=== PATIENT | male | born 1985 | race African-American/Black ===

== ENCOUNTER 2020-11-17 07:33 | Emergency (ER) | payer SELFPAY ==
[2020-11-17] MEDS ORDERED: diphenhydrAMINE 50 MG/ML SDV IVPUSH ONE (08:12)
[2020-11-17] MEDS ORDERED: Haloperidol Lactate 5 MG/ML SDV IM ONE (08:12)
[2020-11-17] MEDS ORDERED: Dextrose 5%-Lactated Ringers 1,000 ML IV SCH (08:15)
[2020-11-17 08:35] LABS: BLOOD UREA NITROGEN,BUN 18 mg/dL (7.0-18.0); CARBON DIOXIDE,CO2 27.9 mmol/L (21.0-32.0); CHLORIDE,CL 102 mmol/L (98-107); GLUCOSE RANDOM 115 mg/dL (74-106); LIPASE 66 U/L (73-393); POTASSIUM,K 4.6 mmol/L (3.5-5.1); SODIUM,NA 139 mmol/L (136-148)
--- NOTE | 2020-11-18 18:21 | EDM.PDOC ---
ED HPI GENERAL MEDICAL PROBLEM - General Chief Complaint: Gastrointestinal Problem Stated Complaint: CHILLS, ACHES, ABDOMINAL PAIN Time Seen by Provider: 11/17/20 08:05 - History of Present Illness INITIAL COMMENTS - FREE TEXT/NARRATIVE: CHIEF COMPLAINT(S): Diarrhea HISTORY OF PRESENT ILLNESS: This is a 35-year-old man with a past ministry of marijuana use disorder who presents to the emergency department with a chief complaint of diarrhea. The patient states that he was fine up until he woke up this morning. States that when he woke up stomach was upset but denies any pain. He describes that queasiness. He states that he has had nausea but denies any vomiting. He has had a couple episodes of diarrhea which did not have any blood in it. He states that he has been working a lot and has not had any time off in the last 7 days. He states that his body feels warm but denies any fever. He did have a bowl of cereal last night which is the same thing his roommate had and his roommate does not have similar symptoms. He denies any chest pain, loss of taste or smell, headache, shortness of breath, cough, runny nose or congestion. He denies any other symptoms. REVIEW OF SYSTEMS: Constitutional: Denies fever, chills. Eyes: Denies eye pain Ears, Nose, Mouth, & Throat: Denies earache Cardiovascular: Denies chest pain Respiratory: Denies shortness of breath Gastrointestinal: Positive for nausea, diarrhea. Denies abdominal pain, vomiting, hematochezia or melena Genitourinary: Denies hematuria Skin:Denies a rash MSK: Denies joint pain Neurological: Denies blurred vision, headache Psychiatric: Denies depression PAST MEDICAL HISTORY: As per history of present illness and as reviewed below otherwise noncontributory. SURGICAL HISTORY: As per history of present illness and as reviewed below o therwise noncontributory. SOCIAL HISTORY: As per history of present illness and as reviewed below otherwise noncontributory. FAMILY HISTORY: As per history of present illness and as reviewed below otherwise noncontributory. EXAMINATION OF ORGAN SYSTEMS/BODY AREAS: Constitutional: Blood pressure was 142/84, heart rate 6, respiratory rate 16 with an oxygen saturation of 96% on room air. Temperature 36.2 General: Obese gentleman who does not appear to be in any acute distress Psychiatric: Appropriate mood and affect. Eyes: No scleral icterus or conjunctival erythema ENMT: Dry mucous membranes. No pharyngeal erythema. Cardiovascular: Regular, rate, and rhythm. No gallops, murmurs, or rubs. Bilateral upper extremity pulses symmetric and intact. No peripheral edema. No JVD. Respiratory: Lungs clear to auscultation bilaterally. No wheezes, rales, or rhonchi. Gastrointestinal: Soft, non-tender, non-distended. Hyperactive bowel sounds. No rebound or guarding. Negative Ty's and McBurney's genitourinary: No suprapubic tenderness Musculoskeletal: Normal range of motion. Skin: No lesions or abrasions. Neurological: Alert, GCS 15 MEDICAL DECISION MAKING AND COURSE IN THE ED WITH INTERPRETATION/REVIEW OF DIAGNOSTIC STUDIES: This is a 35-year-old man with a past medical history of marijuana use or presents to the emergency department with nausea and diarrhea this morning who has normal vital signs and does appear to be mildly clinically dehydrated. Therefore at this time we will provide the patient with D5 LR bolus. We will provide the patient with Haldol and Benadryl for relief of his nausea. Will obtain CBC, CMP, lipase. Glucose. This is for screening. I do believe the patient is experiencing gastroenteritis. Given that there is no blood in his stool I do suspect viral gastroenteritis. Laboratory: CBC reveals no abnormalities except for some neutrophilic predominance but no elevated WBC. CMP reveals hyperglycemia and hyperbilirubinemia of 1.3 without any transaminitis. Tqgan-ih-pvud glucose was 113. Lipase was normal Urinalysis was a clean catch and was negative for leukocyte esterase, negative for nitrites, and negative for blood. Interpretation: Negative. On reevaluation, the patient reported improvement in his nausea and feels more hydrated at this we will trial p.o. fluids to evaluate if patient pulled or drink. We did get him a tray. The patient was able to tolerate p.o. fluid and food without any further nausea or abnormality. I discussed with them strict return precautions been provided to him with information on gastroenteritis. He is to return for any new or worsening symptoms. He was amenable to discharge at this time and had no further questions. DISPOSITION: The patient was discharged home in stable condition. The patient will follow up with primary care physician in 3 to 5 days CONDITION: Fair PROCEDURES: None FINAL IMPRESSION(S)/DIAGNOSES: 1. Acute nausea and diarrhea likely secondary to gastroenteritis Rober Hernandez M.D. Abdomen Pain Score (Numeric/FACES): 6 - Related Data Allergies Allergy/AdvReac Type Severity Reaction Status Date / Time No Known Allergies Allergy Verified 11/17/20 07:51 Home Meds: Home Meds Ondansetron [Zofran ODT] 4 mg PO Q6H PRN #8 tab.dis 11/17/20 [Rx] Past Medical History - Past Health History Medical/Surgical History: Denies Medical/Surgical History - Infectious Disease History Infectious Disease History: Reports: Chicken Pox Social & Family History - Tobacco Use Tobacco Use Status *Q: Never Tobacco User - Caffeine Use Caffeine Use: Reports: None - Recreational Drug Use Recreational Drug Use: Yes Drug Use in Last 12 Months: Yes Recreational Drug Type: Reports: Marijuana/Hashish Recreational Drug Use Frequency: Daily ED ROS GENERAL - Review of Systems Review Of Systems: See Below ED EXAM, GENERAL - Physical Exam Exam: See Below Course - Vital Signs Last Recorded V/S: Last Vital Signs Temp 36.6 C 11/17/20 10:11 Pulse 80 11/17/20 10:11 Resp 16 11/17/20 10:11 BP 140/83 11/17/20 10:11 Pulse Ox 96 11/17/20 10:11 - Orders/Labs/Meds Labs: Laboratory Tests 11/17/20 11/17/20 11/17/20 Range/Units 07:56 07:56 07:57 WBC 9.82 (4.0-11.0) K/uL RBC 5.08 (4.50-5.90) M/uL Hgb 15.9 (13.0-17.0) g/dL Hct 47.3 (38.0-50.0) % MCV 93.1 (80.0-98.0) fL MCH 31.3 (27.0-32.0) pg MCHC 33.6 (31.0-37.0) g/dL RDW Std Deviation 48.0 (28.0-62.0) fl RDW Coeff of Crow 14 (11.0-15.0) % Plt Count 258 (150-400) K/uL MPV 10.60 (7.40-12.00) fL Neut % (Auto) 85.5 H (48.0-80.0) % Lymph % (Auto) 7.9 L (16.0-40.0) % [place] % (Auto) 5.4 (0.0-15.0) % Eos % (Auto) 1.2 (0.0-7.0) % Baso % (Auto) 0.0 (0.0-1.5) % Neut # (Auto) 8.4 H (1.4-5.7) K/uL Lymph # (Auto) 0.8 (0.6-2.4) K/uL [place] # (Auto) 0.5 (0.0-0.8) K/uL Eos # (Auto) 0.1 (0.0-0.7) K/uL Baso # (Auto) 0.0 (0.0-0.1) K/uL Nucleated RBC % 0.0 /100WBC Nucleated RBCs # 0 K/uL Sodium 139 (136-148) mmol/L Potassium 4.6 (3.5-5.1) mmol/L Chloride 102 (98-107) mmol/L Carbon Dioxide 27.9 (21.0-32.0) mmol/L BUN 18 (7.0-18.0) mg/dL Creatinine 1.1 (0.8-1.3) mg/dL Est Cr Clr Drug Dosing 89.82 mL/min Estimated GFR (MDRD) > 60.0 ml/min Glucose 115 H (74-106) mg/dL POC Glucose 113 H (70-99) mg/dL Calcium 8.6 (8.5-10.1) mg/dL Total Bilirubin 1.3 H (0.2-1.0) mg/dL AST 28 (15-37) IU/L ALT 31 (14-63) IU/L Alkaline Phosphatase 101 (46-116) U/L Total Protein 8.0 (6.4-8.2) g/dL Albumin 3.5 (3.4-5.0) g/dL Globulin 4.5 H (2.6-4.0) g/dL Albumin/Globulin Ratio 0.8 L (0.9-1.6) Lipase 66 L (73-393) U/L Urine Color Urine Appearance Urine pH (5.0-8.0) Ur Specific [place] (1.001-1.035) Urine Protein (NEGATIVE) mg/dL Urine Glucose (UA) (NEGATIVE) mg/dL Urine Ketones (NEGATIVE) mg/dL Urine Occult Blood (NEGATIVE) Urine Nitrite (NEGATIVE) Urine Bilirubin (NEGATIVE) Urine Urobilinogen (<2.0) EU/dL Ur Leukocyte Esterase (NEGATIVE) 11/17/20 Range/Units 07:58 WBC (4.0-11.0) K/uL RBC (4.50-5.90) M/uL Hgb (13.0-17.0) g/dL Hct (38.0-50.0) % MCV (80.0-98.0) fL MCH (27.0-32.0) pg MCHC (31.0-37.0) g/dL RDW Std Deviation (28.0-62.0) fl RDW Coeff of Crow (11.0-15.0) % Plt Count (150-400) K/uL MPV (7.40-12.00) fL Neut % (Auto) (48.0-80.0) % Lymph % (Auto) (16.0-40.0) % [place] % (Auto) (0.0-15.0) % Eos % (Auto) (0.0-7.0) % Baso % (Auto) (0.0-1.5) % Neut # (Auto) (1.4-5.7) K/uL Lymph # (Auto) (0.6-2.4) K/uL [place] # (Auto) (0.0-0.8) K/uL Eos # (Auto) (0.0-0.7) K/uL Baso # (Auto) (0.0-0.1) K/uL Nucleated RBC % /100WBC Nucleated RBCs # K/uL Sodium (136-148) mmol/L Potassium (3.5-5.1) mmol/L Chloride (98-107) mmol/L Carbon Dioxide (21.0-32.0) mmol/L BUN (7.0-18.0) mg/dL Creatinine (0.8-1.3) mg/dL Est Cr Clr Drug Dosing mL/min Estimated GFR (MDRD) ml/min Glucose (74-106) mg/dL POC Glucose (70-99) mg/dL Calcium (8.5-10.1) mg/dL Total Bilirubin (0.2-1.0) mg/dL AST (15-37) IU/L ALT (14-63) IU/L Alkaline Phosphatase (46-116) U/L Total Protein (6.4-8.2) g/dL Albumin (3.4-5.0) g/dL Globulin (2.6-4.0) g/dL Albumin/Globulin Ratio (0.9-1.6) Lipase (73-393) U/L Urine Color YELLOW Urine Appearance CLEAR Urine pH 6.5 (5.0-8.0) Ur Specific [place] 1.020 (1.001-1.035) Urine Protein NEGATIVE (NEGATIVE) mg/dL Urine Glucose (UA) NEGATIVE (NEGATIVE) mg/dL Urine Ketones NEGATIVE (NEGATIVE) mg/dL Urine Occult Blood NEGATIVE (NEGATIVE) Urine Nitrite NEGATIVE (NEGATIVE) Urine Bilirubin NEGATIVE (NEGATIVE) Urine Urobilinogen 1.0 (<2.0) EU/dL Ur Leukocyte Esterase NEGATIVE (NEGATIVE) Meds: Medications Discontinued Medications Generic Name Dose Route Start Last Admin Trade Name Freq PRN Reason Stop Dose Admin Diphenhydramine HCl 25 mg 11/17/20 08:12 11/17/20 08:17 Diphenhydramine 50 Mg/Ml Sdv IVPUSH 11/17/20 08:13 25 mg ONETIME ONE Administration Haloperidol Lactate 2.5 mg 11/17/20 08:12 11/17/20 08:17 Haloperidol Lactate 5 Mg/Ml Sdv IM 11/17/20 08:13 2.5 mg ONETIME ONE Administration Dextrose/Lactated Ringer's 1,000 mls @ 999 mls/hr 11/17/20 08:15 11/17/20 08:18 Dextrose 5%-Lactated Ringers IV 999 mls/hr ASDIRECTED ELSIE Administration Departure - Departure Time of Disposition: 10:39 Disposition: Home, Self-Care 01 Condition: Fair Clinical Impression: Gastroenteritis - Discharge Information Prescriptions: Ondansetron [Zofran ODT] 4 mg PO Q6H PRN #8 tab.dis PRN Reason: Nausea Instructions: Viral Gastroenteritis, Adult, [id number] Referrals: PCP,None [Primary Care Provider] - Forms: ED Department Discharge Additional Instructions: The following information is given to patients seen in the emergency department who are being discharged to home. This information is to outline your options for follow-up care. We provide all patients seen in our emergency department with a follow-up referral. The need for follow-up, as well as the timing and circumstances, are variable depending upon the specifics of your emergency department visit. If you don't have a primary care physician on staff, we will provide you with a referral. We always advise you to contact your personal physician following an emergency department visit to inform them of the circumstance of the visit and for follow-up with them and/or the need for any referrals to a consulting specialist. The emergency department will also refer you to a specialist when appropriate. This referral assures that you have the opportunity for follow-up care with a specialist. All of these measure are taken in an effort to provide you with optimal care, which includes your follow-up. Under all circumstances we always encourage you to contact your private physician who remains a resource for coordinating your care. When calling for follow-up care, please make the office aware that this follow-up is from your recent emergency room visit. If for any reason you are refused follow-up, please contact the [facility] Emergency Department at and asked to speak to the emergency department charge nurse. [facility] [address] [place] [address] [place] [address] Thank you for choosing the [facility] emergency department in [place] for your medical needs today. It was a pleasure caring for you. Today you were seen in the emergency department for gastroenteritis. 1. Small frequent sips of fluids to prevent dehydration. You may use the Zofran as needed for nausea management. Slowly advance your diet to a BRAT diet (bananas, rice, applesauce, toast). Once you feel you are improving you can resume a normal diet. If it anytime you are unable to keep fluids or food down any feel your symptoms are not improving and/or worsening please return to the emergency room for reevaluation. 2. Tylenol and/or ibuprofen as needed for pain and fever management. 3. Please establish care with a primary care provider, call today to set up a follow-up appointment for reevaluation. 4. As we discussed if you feel you are not improving please return to the ED as we are more than happy to reevaluate and care for you. Sepsis Event Note (ED) - Evaluation Sepsis Screening Result: No Definite Risk
== END 2020-11-17 10:39 | disposition home or self-care (01) ==
LOC: MW.ED 07:33
DX: K52.9 Noninfective gastroenteritis and colitis, unspecified (principal)
CPT/HCPCS: 80053; 81003; 82947; 83690; 85025; 96372; 96374; 99284; J1200; J1630; J7121; 99283

== ENCOUNTER 2021-12-29 10:48 | Emergency (ER) | payer SELFPAY | END 2021-12-29 13:41 | disposition home or self-care (01) | LOC: MW.ED 10:48 | DX: Z02.89 Encounter for other administrative examinations (principal); Z20.822 Contact with and (suspected) exposure to COVID-19 | CPT/HCPCS: 99282; 99283; U0002 ==

== ENCOUNTER 2022-05-21 21:49 | Emergency (ER) | payer OTHER ==
[2022-05-21] MEDS ORDERED: Losartan 50 MG Tab PO ONE (23:13)
== END 2022-05-21 23:44 | disposition home or self-care (01) ==
LOC: MW.ED 21:49
DX: I10 Essential (primary) hypertension (principal); Z79.899 Other long term (current) drug therapy
CPT/HCPCS: 99283; A9270

== ENCOUNTER 2023-11-24 11:48 | Emergency (ER) | payer SELFPAY | END 2023-11-24 12:15 | disposition home or self-care (01) | LOC: MW.ED 11:48 | DX: I10 Essential (primary) hypertension (principal) | CPT/HCPCS: 99283 ==